=== PATIENT | male | born 2000 | race Two or more races ===

== ENCOUNTER 2024-05-17 13:04 | Emergency (ER) | payer MEDICAID ==
[~2024-05-17] VITALS: Ht 152.4 cm; Wt 91.3 kg
[2024-05-17 13:46] LABS: Urine Bacteria None Seen /hpf (None Seen)
[2024-05-17 14:15] VITALS: BP 128/76; PULSE 96; RESP 18; TEMP 98.7; O2SAT 98
[2024-05-17 14:18] LABS: Urine Blood Negative /uL (Negative); Urine Clarity Clear (Clear); Urine Color Yellow (Yellow); Urine Mucus FEW (None Seen); Urine Protein, UAD TRACE (Negative); Urine Specific Gravity 1.029 (1.001-1.035); Urine Urobilinogen 2 mg/dL (Negative); Urine WBC 31 /hpf (0 - 3); Urine pH 7.5 (5.0-9.0)
[2024-05-17] MEDS: cefTRIAXone SOD 1,000 MG VL IM ONE (14:19)
[2024-05-17] MEDS ORDERED: BACDST PO (14:41)
[2024-05-17] MEDS ORDERED: AZIT-43 PO (14:42)
[2024-05-19 15:07] LABS: Chlamydia Trachomatis, NAA Negative (Negative); Neisseria gonorrhoeae, NAA Positive (Negative)
== END 2024-05-17 14:51 | disposition home or self-care (01) ==
LOC: ER 13:04
DX: N39.0 Urinary tract infection, site not specified (principal); Z72.51 High risk heterosexual behavior
CPT/HCPCS: 81001; 87491; 87591; 96372; 99283; J0696